=== PATIENT | female | born 1995 | race Two or more races ===

== ENCOUNTER 2017-04-04 03:35 | Emergency (ER) | payer OTHER ==
[~2017-04-04] VITALS: Ht 160 cm; Wt 56.7 kg
[2017-04-04 04:20] VITALS: BP 116/60
[2017-04-04] MEDS ORDERED: KETOROLAC TROMETH 60MG/2ML VIAL IM ONE (05:15)
== END 2017-04-04 05:44 | disposition home or self-care (01) ==
LOC: ER 03:39
DX: M54.5 Low back pain (principal); M19.90 Unspecified osteoarthritis, unspecified site; V49.59XA Passenger injured in collision with other motor vehicles in traffic accident, initial encounter; Y93.89 Activity, other specified; Y99.8 Other external cause status; Y92.410 Unspecified street and highway as the place of occurrence of the external cause
CPT/HCPCS: 72100; 81025; 96372; 99284; J1885